=== PATIENT | male | born 2000 | race Caucasian/White ===

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

== ENCOUNTER 2023-01-27 16:52 | Observation (INO) | payer MEDICAID, SELFPAY ==
--- NOTE | ~2023-01-27 | XR_ITS ---
EXAMINATION: PORTABLE CHEST 1 VIEW CLINICAL INFORMATION: Chest pain. COMPARISON: No recent pertinent prior studies are available for comparison. TECHNIQUE: Portable frontal view of the chest was obtained. FINDINGS: The lungs are well expanded. No focal infiltrate, effusion, edema, or pneumothorax. Cardiac and mediastinal silhouettes are within normal limits for technique. No acute bony abnormality seen. XR/XR chest 1V IMPRESSION: No evidence of acute disease.
--- NOTE | ~2023-01-27 | CT_ITS ---
EXAMINATION: CT ANGIOGRAM CHEST WITH AND WITHOUT CONTRAST (CT PULMONARY ANGIOGRAM FOR PE) CLINICAL INFORMATION: Chest pain, elevated D-dimer. COMPARISON: Chest x-ray from earlier the same day. TECHNIQUE: Prior to contrast administration, noncontrast localization images were obtained. Subsequently, multidetector volumetric imaging was performed from the thoracic inlet to below the diaphragms following the administration of 65 mL Omnipaque 350 intravenous contrast. No contrast reaction reported. Sagittal, coronal, and MIP oblique sagittal reformatted images were obtained on the CT workstation, uploaded to PACS, and reviewed. This CT examination was performed using dose optimization techniques as appropriate, variously including the following: *Automated exposure control. *Adjustment of mA and/or kV according to patient size (this includes techniques or standardized protocols for targeted exams where dose is matched to indication/reason for exam; i.e. extremities or head). *Use of iterative reconstruction technique. Total exam dose-length product 310 mGy-cm. FINDINGS: QUALITY OF STUDY/CONTRAST BOLUS: Satisfactory. PULMONARY ARTERIES: No pulmonary emboli. THORACIC AORTA: No aneurysm. LUNG: No focal consolidation, nodules or masses. PLEURA: No pleural effusion or pneumothorax. MEDIASTINUM: Normal heart size. No pericardial effusion. No hilar or mediastinal lymphadenopathy. No evidence of septal bowing or right heart strain. CORONARY ARTERY CALCIFICATION: None visualized on this study. CHEST WALL/AXILLA: No axillary or internal mammary lymphadenopathy. OSSEOUS STRUCTURES: No acute or suspicious osseous abnormality. UPPER ABDOMEN: Unremarkable. No reflux of contrast into the hepatic veins to suggest elevated right heart pressures. CT/CT angio chest PE protocol IMPRESSION: No evidence of pulmonary embolism. VTE: Negative.
--- NOTE | 2023-01-27 16:58 | ECG_ITS ---
Test Reason : CHEST PAIN Blood Pressure : / mmHG Vent. Rate : 081 BPM Atrial Rate : 081 BPM P-R Int : 120 ms QRS Dur : 086 ms QT Int : 350 ms P-R-T Axes : 046 034 025 degrees QTc Int : 406 ms Normal sinus rhythm with sinus arrhythmia Normal ECG No previous ECGs available Referred By: Generic ED Physician Electronically Signed By:SUBHA RODRIGUEZ MD
[2023-01-27 17:26] VITALS: BP 131/78; PULSE 81; RESP 18; TEMP 36.7; O2SAT 98; BMI 33.0
--- NOTE | 2023-01-27 17:30 | ED_ITS ---
HPI - Chest Pain General Chief Complaint: Chest Pain <LOYDA Cleaning - Last Filed: 02/03/23 09:32> Stated Complaint: chest pain left arm pain <LOYDA Cleaning - Last Filed: 02/03/23 09:32> Time Seen by Provider: 01/27/23 18:10 <LOYDA Cleaning - Last Filed: 02/03/23 09:32> Source: patient and family (Mother) <Shanique Chacon MD - Last Filed: 01/27/23 23:25> Mode of arrival: ambulatory <Shanique Chacon MD - Last Filed: 01/27/23 23:25> History of Present Illness HPI narrative: 22-year-old male without significant past medical history, up-to-date on vaccine, states that he is been feeling unwell since with some body aches and then states that yesterday he had significant left-sided chest pain that radiated into his left arm and felt that in his neck. He then states that the pain resolved and was not associated with any dizziness or shortness of breath. And then patient states that he experienced chest pain again today left chest involving the arm and states that he felt something funny in his leg but is completely asymptomatic at the time of evaluation. <Shanique Chacon MD - Last Filed: 01/27/23 23:25> Related Data Home Medications: Previous Rx's Medication Instructions Recorded metoprolol succinate 50 mg 50 mg PO DAILY #30 tabs 01/29/23 tablet,extended release 24 hr (Toprol XL) <LOYDA Cleaning - Last Filed: 02/03/23 09:32> Allergies/Adverse Reactions: Allergies Allergy/AdvReac Type Severity Reaction Status Date / Time No Known Allergies Allergy Verified 01/28/23 01:03 [No Known Allergies*] <LOYDA Cleaning - Last Filed: 02/03/23 09:32> Review of Systems Review of Systems: Pertinent positives and negatives as stated in HPI <Shanique Chacon MD - Last Filed: 01/27/23 23:25> PMFSH Past Medical History Source: nursing notes reviewed <Shanique Chacon MD - Last Filed: 01/27/23 23:25> Medical History: Medical History Mild intermittent asthma <LOYDA Cleaning - Last Filed: 02/03/23 09:32> Family History Family History: Family History Mother No problems noted. Father Rash and nonspecific skin eruption Eczema Paternal Uncle Rash and nonspecific skin eruption <LOYDA Cleaning - Last Filed: 02/03/23 09:32> Social History Social History: Social History Household Members: Family Alcohol intake: never Patient Tobacco Use Status: Never used Tobacco Smoked in Last 30 Days: No Use of substances other than those prescribed or required for medical reasons: No Advance Directives: No Advance Directives Information Provided: No Nutrition Risks: No Nutritional Risk service: No Current occupational status: unemployed <LOYDA Cleaning - Last Filed: 02/03/23 09:32> Physical Exam Vital Signs: Vital Signs: Last Vital Signs Temp 97.6 F 01/29/23 11:33 Pulse 67 01/29/23 11:33 Resp 18 01/29/23 11:33 BP 113/76 01/29/23 11:33 Pulse Ox 96 01/29/23 11:33 O2 Del Method Room Air 01/29/23 11:33 BMI result Body Mass Index 33.0 <LOYDA Cleaning - Last Filed: 02/03/23 09:32> Vital Signs: Last Vital Signs Temp 97.6 F 01/29/23 11:33 Pulse 67 01/29/23 11:33 Resp 18 01/29/23 11:33 BP 113/76 01/29/23 11:33 Pulse Ox 96 01/29/23 11:33 O2 Del Method Room Air 01/29/23 11:33 BMI result Body Mass Index 33.0 VITAL SIGNS: Reviewed. GENERAL: Well developed, well nourished, in no acute distress. HEAD: Normocephalic/atraumatic EYES: PERRLA, EOMI EARS: Ext canals without abnormality, TMs non-bulging and non-erythematous NOSE: Nares patent bilateral OROPHARYNX: no oral lesions noted, posterior pharynx clear and non-erythematous without noted tonsillar enlargement/erythema/exudates NECK: Supple, no adenopathy LUNGS: Normal breath sounds. No adventitious sounds or accessory muscle use. SpO2<98> CARDIOVASCULAR: Regular rate and rhythm without noted murmurs but pronounced P2 ABDOMEN: Soft, non-tender, non-distended with bowel sounds. MUSCULOSKELETAL: No tenderness, deformities, or effusions noted on gross inspection. EXTREMITIES: No cyanosis, clubbing or edema. SKIN: Inspection of the skin reveals vitiligo NEUROLOGIC: Alert and oriented x 4. Strength and sensation to light touch were grossly intact x 4. I completed a bedside echo: Good squeeze Aorta less than 4 cm RV=LV No pericardial effusion <Shanique Chacon MD - Last Filed: 01/27/23 23:25> Course Course Course Narrative: RME: 22 yold male presents to the ED For left sided chest pain since yesterday. Chest pain resolved, but still has tingling in left arm. NO pleurisy, recent travel, surgery, or leg swelling. labs/EKG/chest xray ordered <LOYDA Cleaning - Last Filed: 02/03/23 09:32> Medications Administered Discontinued Medications Generic Name Dose Route Start Last Admin Trade Name Freq PRN Reason Stop Dose Admin Sodium Chloride 1,000 mls @ 999 mls/hr 01/28/23 02:06 01/28/23 04:12 Ns IV 01/28/23 03:06 Infused .Q1H1M ONE Infusion Iohexol 100 ml 01/27/23 20:22 01/27/23 20:22 Iohexol 350 Mg/Ml 100 Ml Infus..Btl IV 01/27/23 20:23 65 ml ONCE ONE Administration Metoprolol Tartrate 25 mg 01/28/23 10:45 01/29/23 09:51 Metoprolol Tartrate 25 Mg Tablet PO 25 mg BID CANDACE Administration Protocol Sodium Chloride 3 ml 01/28/23 08:00 01/29/23 09:52 0.9 % Sodium Chloride Flush 3 Ml Syringe IVFLUSH 3 ml QSHIFT CANDACE Administration <LOYDA Cleaning - Last Filed: 02/03/23 09:32> Medications Administered Discontinued Medications Generic Name Dose Route Start Last Admin Trade Name Freq PRN Reason Stop Dose Admin Sodium Chloride 1,000 mls @ 999 mls/hr 01/28/23 02:06 04/11/23 04:12 Ns IV 01/28/23 03:06 Infused .Q1H1M ONE Infusion Iohexol 100 ml 01/27/23 20:22 01/27/23 20:22 Iohexol 350 Mg/Ml 100 Ml Infus..Btl IV 01/27/23 20:23 65 ml ONCE ONE Administration Metoprolol Tartrate 25 mg 01/28/23 10:45 01/29/23 09:51 Metoprolol Tartrate 25 Mg Tablet PO 25 mg BID CANDACE Administration Protocol Sodium Chloride 3 ml 01/28/23 08:00 01/29/23 09:52 0.9 % Sodium Chloride Flush 3 Ml Syringe IVFLUSH 3 ml QSHIFT CANDACE Administration <Shanique Chacon MD - Last Filed: 01/27/23 23:25> Medical Decision Making Medical Decision Making MDM Narrative: 22-year-old male with history and clinical presentation initially felt to be possible viral in nature but then troponin was elevated to over 2000, EKG without acute findings, d-dimer 892, CRP-1.84,CPK-325, UDS negative, viral testing negative. Patient has remained asymptomatic throughout his observation in the emergency room. 2257: I reached out to Cardiology after 2nd troponin demonstrates a downward trend and repeat EKG again without acute findings. 2322: I discussed case with cardiology who recommends admission for obse rvation, formal echocardiogram in the morning, continue to trend troponins every 6-8 hours. Patient and family member were informed at bedside. <Shanique Chacon MD - Last Filed: 01/27/23 23:25> Differential Diagnosis Please see the discussion above <Shanique Chacon MD - Last Filed: 01/27/23 23:25> Consult Healthcare Provider Please see the discussion above <Shanique Chacon MD - Last Filed: 01/27/23 23:25> Lab Data Please see the discussion above <Shanique Chacon MD - Last Filed: 01/27/23 23:25> Result Diagrams: 01/27/23 19:34 01/27/23 19:34 <LOYDA Cleaning - Last Filed: 02/03/23 09:32> Labs: Lab Results 01/27/23 01/27/23 01/27/23 Range/Units 18:23 18:23 19:34 WBC 6.7 (4.8-10.8) X10*3/uL RBC 5.42 (4.60-5.80) X10*6/uL Hgb 16.3 (14.0-18.0) g/dl Hct 44.9 (42.0-52.0) % MCV 82.8 (80.0-98.0) fL MCH 30.1 (27.0-33.0) pg MCHC 36.3 H (31.0-36.0) g/dl RDW 11.9 (11.0-16.0) % Plt Count 211 (160-400) X10*3/uL MPV 10.3 (9.4-12.4) fL Immature Gran % (Auto) 0.1 (0.0-0.4) % Neut % (Auto) 52.6 (45-73) % Lymph % (Auto) 34.4 (20-40) % Mcnairy % (Auto) 11.2 H (2-11) % Eos % (Auto) 1.3 (0-4) % Baso % (Auto) 0.4 (0-2) % Lymph # (Auto) 2.3 (1.2-4.9) X10*3/uL Mcnairy # (Auto) 0.8 (0.1-1.2) X10*3/uL Eos # (Auto) 0.1 (0.0-0.4) X10*3/uL Baso # (Auto) 0.0 (0.0-0.2) X10*3/uL Abs Immat Gran (auto) 0.01 (0.00-0.03) X10*3/uL Absolute Neuts (auto) 3.5 (2.0-8.3) x10*3/uL Absolute Nucleated RBC 0.000 (0.0-0.012) X10*3/uL Nucleated RBC % (auto) 0.0 (0.0-0.2) /100WBC ESR (0-15) MM/HR PT (10.0-13.1) SEC INR (0.9-1.1) D-Dimer High Sensitivty NG/ML Sodium (135-145) mmol/L Potassium (3.3-5.1) mmol/L Chloride (96-108) mmol/L Carbon Dioxide (22-29) mmol/L Anion Gap (12-20) BUN (9-16) mg/dL Creatinine (0.5-1.4) mg/dL Estim Creat Clear Calc Estimated GFR Random Glucose (60-115) mg/dL Calcium (8.4-10.2) mg/dL Total Bilirubin (0.0-1.0) mg/dL AST (5-37) U/L ALT (0-40) U/L Alkaline Phosphatase (39-117) U/L Total Creatine Kinase (38-174) U/L Troponin I High Sens 2680.6 H* (<3.5-35.0) ng/L C-Reactive Protein (< or = 0.50) mg/dL Total Protein (6.5-8.0) g/dL Albumin (3.5-5.0) g/dL Urine Opiates Screen (Not Detect) Urine Fentanyl Screen (Not Detect) Ur Barbiturates Screen (Not Detect) Ur Phencyclidine Scrn (Not Detect) Ur Amphetamines Screen (Not Detect) U Benzodiazepines Scrn (Not Detect) Urine Cocaine Screen (Not Detect) U Marijuana (THC) Screen (Not Detect) Influenza Type A (PCR) NEGATIVE (Negative) Influenza Type B (PCR) NEGATIVE (Negative) RSV RNA Qual (PCR) NEGATIVE (Negative) SARS-CoV-2 RNA (RT-PCR) NEGATIVE (Negative) S. pyogenes GrpA ELLIOTT (Negative) 01/27/23 01/27/23 01/27/23 Range/Units 19:34 19:34 19:34 WBC (4.8-10.8) X10*3/uL RBC (4.60-5.80) X10*6/uL Hgb (14.0-18.0) g/dl Hct (42.0-52.0) % MCV (80.0-98.0) fL MCH (27.0-33.0) pg MCHC (31.0-36.0) g/dl RDW (11.0-16.0) % Plt Count (160-400) X10*3/uL MPV (9.4-12.4) fL Immature Gran % (Auto) (0.0-0.4) % Neut % (Auto) (45-73) % Lymph % (Auto) (20-40) % Mcnairy % (Auto) (2-11) % Eos % (Auto) (0-4) % Baso % (Auto) (0-2) % Lymph # (Auto) (1.2-4.9) X10*3/uL Mcnairy # (Auto) (0.1-1.2) X10*3/uL Eos # (Auto) (0.0-0.4) X10*3/uL Baso # (Auto) (0.0-0.2) X10*3/uL Abs Immat Gran (auto) (0.00-0.03) X10*3/uL Absolute Neuts (auto) (2.0-8.3) x10*3/uL Absolute Nucleated RBC (0.0-0.012) X10*3/uL Nucleated RBC % (auto) (0.0-0.2) /100WBC ESR 5 (0-15) MM/HR PT 12.8 (10.0-13.1) SEC INR 1.1 (0.9-1.1) D-Dimer High Sensitivty 896 NG/ML Sodium 142 (135-145) mmol/L Potassium 3.7 (3.3-5.1) mmol/L Chloride 104 (96-108) mmol/L Carbon Dioxide 28 (22-29) mmol/L Anion Gap 14 (12-20) BUN 7 L (9-16) mg/dL Creatinine 0.82 (0.5-1.4) mg/dL Estim Creat Clear Calc 153.4 Estimated GFR > 60 Random Glucose 86 (60-115) mg/dL Calcium 9.6 (8.4-10.2) mg/dL Total Bilirubin 0.6 (0.0-1.0) mg/dL AST 36 (5-37) U/L ALT 24 (0-40) U/L Alkaline Phosphatase 56 (39-117) U/L Total Creatine Kinase 325 H (38-174) U/L Troponin I High Sens (<3.5-35.0) ng/L C-Reactive Protein 1.84 H (< or = 0.50) mg/dL Total Protein 7.5 (6.5-8.0) g/dL Albumin 4.7 (3.5-5.0) g/dL Urine Opiates Screen (Not Detect) Urine Fentanyl Screen (Not Detect) Ur Barbiturates Screen (Not Detect) Ur Phencyclidine Scrn (Not Detect) Ur Amphetamines Screen (Not Detect) U Benzodiazepines Scrn (Not Detect) Urine Cocaine Screen (Not Detect) U Marijuana (THC) Screen (Not Detect) Influenza Type A (PCR) (Negative) Influenza Type B (PCR) (Negative) RSV RNA Qual (PCR) (Negative) SARS-CoV-2 RNA (RT-PCR) (Negative) S. pyogenes GrpA ELLIOTT (Negative) 01/27/23 01/27/23 01/27/23 Range/Units 20:30 20:30 22:02 WBC (4.8-10.8) X10*3/uL RBC (4.60-5.80) X10*6/uL Hgb (14.0-18.0) g/dl Hct (42.0-52.0) % MCV (80.0-98.0) fL MCH (27.0-33.0) pg MCHC (31.0-36.0) g/dl RDW (11.0-16.0) % Plt Count (160-400) X10*3/uL MPV (9.4-12.4) fL Immature Gran % (Auto) (0.0-0.4) % Neut % (Auto) (45-73) % Lymph % (Auto) (20-40) % Mcnairy % (Auto) (2-11) % Eos % (Auto) (0-4) % Baso % (Auto) (0-2) % Lymph # (Auto) (1.2-4.9) X10*3/uL Mcnairy # (Auto) (0.1-1.2) X10*3/uL Eos # (Auto) (0.0-0.4) X10*3/uL Baso # (Auto) (0.0-0.2) X10*3/uL Abs Immat Gran (auto) (0.00-0.03) X10*3/uL Absolute Neuts (auto) (2.0-8.3) x10*3/uL Absolute Nucleated RBC (0.0-0.012) X10*3/uL Nucleated RBC % (auto) (0.0-0.2) /100WBC ESR (0-15) MM/HR PT (10.0-13.1) SEC INR (0.9-1.1) D-Dimer High Sensitivty NG/ML Sodium (135-145) mmol/L Potassium (3.3-5.1) mmol/L Chloride (96-108) mmol/L Carbon Dioxide (22-29) mmol/L Anion Gap (12-20) BUN (9-16) mg/dL Creatinine (0.5-1.4) mg/dL Estim Creat Clear Calc Estimated GFR Random Glucose (60-115) mg/dL Calcium (8.4-10.2) mg/dL Total Bilirubin (0.0-1.0) mg/dL AST (5-37) U/L ALT (0-40) U/L Alkaline Phosphatase (39-117) U/L Total Creatine Kinase (38-174) U/L Troponin I High Sens 2048.0 H* (<3.5-35.0) ng/L C-Reactive Protein (< or = 0.50) mg/dL Total Protein (6.5-8.0) g/dL Albumin (3.5-5.0) g/dL Urine Opiates Screen Not Detected (Not Detect) Urine Fentanyl Screen Not Detected (Not Detect) Ur Barbiturates Screen Not Detected (Not Detect) Ur Phencyclidine Scrn Not Detected (Not Detect) Ur Amphetamines Screen Not Detected (Not Detect) U Benzodiazepines Scrn Not Detected (Not Detect) Urine Cocaine Screen Not Detected (Not Detect) U Marijuana (THC) Screen Not Detected (Not Detect) Influenza Type A (PCR) (Negative) Influenza Type B (PCR) (Negative) RSV RNA Qual (PCR) (Negative) SARS-CoV-2 RNA (RT-PCR) (Negative) S. pyogenes GrpA ELLIOTT Negative (Negative) <LOYDA Cleaning - Last Filed: 02/03/23 09:32> Lab Results 01/27/23 01/27/23 01/27/23 Range/Units 18:23 18:23 19:34 WBC 6.7 (4.8-10.8) X10*3/uL RBC 5.42 (4.60-5.80) X10*6/uL Hgb 16.3 (14.0-18.0) g/dl Hct 44.9 (42.0-52.0) % MCV 82.8 (80.0-98.0) fL MCH 30.1 (27.0-33.0) pg MCHC 36.3 H (31.0-36.0) g/dl RDW 11.9 (11.0-16.0) % Plt Count 211 (160-400) X10*3/uL MPV 10.3 (9.4-12.4) fL Immature Gran % (Auto) 0.1 (0.0-0.4) % Neut % (Auto) 52.6 (45-73) % Lymph % (Auto) 34.4 (20-40) % Mcnairy % (Auto) 11.2 H (2-11) % Eos % (Auto) 1.3 (0-4) % Baso % (Auto) 0.4 (0-2) % Lymph # (Auto) 2.3 (1.2-4.9) X10*3/uL Mcnairy # (Auto) 0.8 (0.1-1.2) X10*3/uL Eos # (Auto) 0.1 (0.0-0.4) X10*3/uL Baso # (Auto) 0.0 (0.0-0.2) X10*3/uL Abs Immat Gran (auto) 0.01 (0.00-0.03) X10*3/uL Absolute Neuts (auto) 3.5 (2.0-8.3) x10*3/uL Absolute Nucleated RBC 0.000 (0.0-0.012) X10*3/uL Nucleated RBC % (auto) 0.0 (0.0-0.2) /100WBC ESR (0-15) MM/HR PT (10.0-13.1) SEC INR (0.9-1.1) D-Dimer High Sensitivty NG/ML Sodium (135-145) mmol/L Potassium (3.3-5.1) mmol/L Chloride (96-108) mmol/L Carbon Dioxide (22-29) mmol/L Anion Gap (12-20) BUN (9-16) mg/dL Creatinine (0.5-1.4) mg/dL Estim Creat Clear Calc Estimated GFR Random Glucose (60-115) mg/dL Calcium (8.4-10.2) mg/dL Total Bilirubin (0.0-1.0) mg/dL AST (5-37) U/L ALT (0-40) U/L Alkaline Phosphatase (39-117) U/L Total Creatine Kinase (38-174) U/L Troponin I High Sens 2680.6 H* (<3.5-35.0) ng/L C-Reactive Protein (< or = 0.50) mg/dL Total Protein (6.5-8.0) g/dL Albumin (3.5-5.0) g/dL Urine Opiates Screen (Not Detect) Urine Fentanyl Screen (Not Detect) Ur Barbiturates Screen (Not Detect) Ur Phencyclidine Scrn (Not Detect) Ur Amphetamines Screen (Not Detect) U Benzodiazepines Scrn (Not Detect) Urine Cocaine Screen (Not Detect) U Marijuana (THC) Screen (Not Detect) Influenza Type A (PCR) NEGATIVE (Negative) Influenza Type B (PCR) NEGATIVE (Negative) RSV RNA Qual (PCR) NEGATIVE (Negative) SARS-CoV-2 RNA (RT-PCR) NEGATIVE (Negative) S. pyogenes GrpA ELLIOTT (Negative) 01/27/23 01/27/23 01/27/23 Range/Units 19:34 19:34 19:34 WBC (4.8-10.8) X10*3/uL RBC (4.60-5.80) X10*6/uL Hgb (14.0-18.0) g/dl Hct (42.0-52.0) % MCV (80.0-98.0) fL MCH (27.0-33.0) pg MCHC (31.0-36.0) g/dl RDW (11.0-16.0) % Plt Count (160-400) X10*3/uL MPV (9.4-12.4) fL Immature Gran % (Auto) (0.0-0.4) % Neut % (Auto) (45-73) % Lymph % (Auto) (20-40) % Mcnairy % (Auto) (2-11) % Eos % (Auto) (0-4) % Baso % (Auto) (0-2) % Lymph # (Auto) (1.2-4.9) X10*3/uL Mcnairy # (Auto) (0.1-1.2) X10*3/uL Eos # (Auto) (0.0-0.4) X10*3/uL Baso # (Auto) (0.0-0.2) X10*3/uL Abs Immat Gran (auto) (0.00-0.03) X10*3/uL Absolute Neuts (auto) (2.0-8.3) x10*3/uL Absolute Nucleated RBC (0.0-0.012) X10*3/uL Nucleated RBC % (auto) (0.0-0.2) /100WBC ESR 5 (0-15) MM/HR PT 12.8 (10.0-13.1) SEC INR 1.1 (0.9-1.1) D-Dimer High Sensitivty 896 NG/ML Sodium 142 (135-145) mmol/L Potassium 3.7 (3.3-5.1) mmol/L Chloride 104 (96-108) mmol/L Carbon Dioxide 28 (22-29) mmol/L Anion Gap 14 (12-20) BUN 7 L (9-16) mg/dL Creatinine 0.82 (0.5-1.4) mg/dL Estim Creat Clear Calc 153.4 Estimated GFR > 60 Random Glucose 86 (60-115) mg/dL Calcium 9.6 (8.4-10.2) mg/dL Total Bilirubin 0.6 (0.0-1.0) mg/dL AST 36 (5-37) U/L ALT 24 (0-40) U/L Alkaline Phosphatase 56 (39-117) U/L Total Creatine Kinase 325 H (38-174) U/L Troponin I High Sens (<3.5-35.0) ng/L C-Reactive Protein 1.84 H (< or = 0.50) mg/dL Total Protein 7.5 (6.5-8.0) g/dL Albumin 4.7 (3.5-5.0) g/dL Urine Opiates Screen (Not Detect) Urine Fentanyl Screen (Not Detect) Ur Barbiturates Screen (Not Detect) Ur Phencyclidine Scrn (Not Detect) Ur Amphetamines Screen (Not Detect) U Benzodiazepines Scrn (Not Detect) Urine Cocaine Screen (Not Detect) U Marijuana (THC) Screen (Not Detect) Influenza Type A (PCR) (Negative) Influenza Type B (PCR) (Negative) RSV RNA Qual (PCR) (Negative) SARS-CoV-2 RNA (RT-PCR) (Negative) S. pyogenes GrpA ELLIOTT (Negative) 01/27/23 01/27/23 01/27/23 Range/Units 20:30 20:30 22:02 WBC (4.8-10.8) X10*3/uL RBC (4.60-5.80) X10*6/uL Hgb (14.0-18.0) g/dl Hct (42.0-52.0) % MCV (80.0-98.0) fL MCH (27.0-33.0) pg MCHC (31.0-36.0) g/dl RDW (11.0-16.0) % Plt Count (160-400) X10*3/uL MPV (9.4-12.4) fL Immature Gran % (Auto) (0.0-0.4) % Neut % (Auto) (45-73) % Lymph % (Auto) (20-40) % Mcnairy % (Auto) (2-11) % Eos % (Auto) (0-4) % Baso % (Auto) (0-2) % Lymph # (Auto) (1.2-4.9) X10*3/uL Mcnairy # (Auto) (0.1-1.2) X10*3/uL Eos # (Auto) (0.0-0.4) X10*3/uL Baso # (Auto) (0.0-0.2) X10*3/uL Abs Immat Gran (auto) (0.00-0.03) X10*3/uL Absolute Neuts (auto) (2.0-8.3) x10*3/uL Absolute Nucleated RBC (0.0-0.012) X10*3/uL Nucleated RBC % (auto) (0.0-0.2) /100WBC ESR (0-15) MM/HR PT (10.0-13.1) SEC INR (0.9-1.1) D-Dimer High Sensitivty NG/ML Sodium (135-145) mmol/L Potassium (3.3-5.1) mmol/L Chloride (96-108) mmol/L Carbon Dioxide (22-29) mmol/L Anion Gap (12-20) BUN (9-16) mg/dL Creatinine (0.5-1.4) mg/dL Estim Creat Clear Calc Estimated GFR Random Glucose (60-115) mg/dL Calcium (8.4-10.2) mg/dL Total Bilirubin (0.0-1.0) mg/dL AST (5-37) U/L ALT (0-40) U/L Alkaline Phosphatase (39-117) U/L Total Creatine Kinase (38-174) U/L Troponin I High Sens 2048.0 H* (<3.5-35.0) ng/L C-Reactive Protein (< or = 0.50) mg/dL Total Protein (6.5-8.0) g/dL Albumin (3.5-5.0) g/dL Urine Opiates Screen Not Detected (Not Detect) Urine Fentanyl Screen Not Detected (Not Detect) Ur Barbiturates Screen Not Detected (Not Detect) Ur Phencyclidine Scrn Not Detected (Not Detect) Ur Amphetamines Screen Not Detected (Not Detect) U Benzodiazepines Scrn Not Detected (Not Detect) Urine Cocaine Screen Not Detected (Not Detect) U Marijuana (THC) Screen Not Detected (Not Detect) Influenza Type A (PCR) (Negative) Influenza Type B (PCR) (Negative) RSV RNA Qual (PCR) (Negative) SARS-CoV-2 RNA (RT-PCR) (Negative) S. pyogenes GrpA ELLIOTT Negative (Negative) <Shanique Chacon MD - Last Filed: 01/27/23 23:25> Independent Interpretation I performed an independent interpretation of an: EKG <Shanique Chacon MD - Last Filed: 01/27/23 23:25> Interpretation: 1659: Normal sinus rhythm with sinus arrhythmia, HR -81, no STEMI, NM/QRS/QTC is within normal limit 2152: Normal sinus rhythm, HR-75, no STEMI, NM/QRS/QTC are within normal limits. <Shanique Chacon MD - Last Filed: 01/27/23 23:25> Radiology Impression Radiologist Impression: My interpretation is in agreement with radiology's impression of the imaging studies. <Shanique Chacon MD - Last Filed: 01/27/23 23:25> Discharge Plan Discharge Clinical Impression: Viral illness, Chest pain, Elevated troponin, Myocarditis <LOYDA Cleaning - Last Filed: 02/03/23 09:32> Patient Disposition: Admitted As Inpatient <LOYDA Cleaning - Last Filed: 02/03/23 09:32> Discharge Date/Time: 01/28/23 07:45 <LOYDA Cleaning - Last Filed: 02/03/23 09:32>
[2023-01-27 18:59] LABS: Troponin-I High Sensitivity 2680.6 ng/L (<3.5-35.0)
[2023-01-27 19:12] LABS: Influenza A PCR NEGATIVE (Negative); Influenza B PCR NEGATIVE (Negative); Resp Syncy Virus RNA Qual PCR NEGATIVE (Negative); SARS COV2 PCR INHOUSE NEGATIVE (Negative)
[2023-01-27 19:41] LABS: MANUAL DIFF FLAG NO
[2023-01-27 19:43] LABS: Basophils Percent Auto 0.4 % (0-2); Eosinophils Absolute Auto 0.1 X10*3/uL (0.0-0.4); Eosinophils Percent Auto 1.3 % (0-4); Hematocrit 44.9 % (42.0-52.0); Hemoglobin 16.3 g/dl (14.0-18.0); Imm Gran Abs Auto 0.01 X10*3/uL (0.00-0.03); Imm Gran Pct Auto 0.1 % (0.0-0.4); Lymphocytes Absolute Auto 2.3 X10*3/uL (1.2-4.9); Lymphocytes Percent Auto 34.4 % (20-40); Mean Corpuscular HGB Conc 36.3 g/dl (31.0-36.0); Mean Corpuscular Hemoglobin 30.1 pg (27.0-33.0); Mean Corpuscular Volume 82.8 fL (80.0-98.0); Mean Platelet Volume 10.3 fL (9.4-12.4); Monocytes Absolute Auto 0.8 X10*3/uL (0.1-1.2); Monocytes Percent Auto 11.2 % (2-11); Neutrophils Absolute Auto 3.5 x10*3/uL (2.0-8.3); Neutrophils Percent Auto 52.6 % (45-73); Platelet Count 211 X10*3/uL (160-400); Red Blood Count 5.42 X10*6/uL (4.60-5.80); Red Cell Distribution Width 11.9 % (11.0-16.0); White Blood Count 6.7 X10*3/uL (4.8-10.8)
[2023-01-27 19:47] LABS: INTERNATIONAL NORM RATIO 1.1 (0.9-1.1); Prothrombin Time 12.8 SEC (10.0-13.1)
[2023-01-27 19:49] LABS: D Dimer High Sensitivity 896 NG/ML
[2023-01-27 20:08] LABS: Alanine Aminotransferase 24 U/L (0-40); Albumin Level 4.7 g/dL (3.5-5.0); Alkaline Phosphatase 56 U/L (39-117); Anion Gap 14 (12-20); Aspartate Amino Transferase 36 U/L (5-37); Bilirubin Total 0.6 mg/dL (0.0-1.0); Blood Urea Nitrogen 7 mg/dL (9-16); C Reactive Protein 1.84 mg/dL (< or = 0.50); Calcium 9.6 mg/dL (8.4-10.2); Carbon Dioxide 28 mmol/L (22-29); Chloride 104 mmol/L (96-108); Creatinine Clr Calc Pharmacy 153.4; Estimated Glomerular Filt Rate > 60; Glucose Random 86 mg/dL (60-115); Potassium 3.7 mmol/L (3.3-5.1); Sodium 142 mmol/L (135-145); Total Protein 7.5 g/dL (6.5-8.0)
[2023-01-27 20:19] LABS: Erythrocyte Sedimentation Rate 5 MM/HR (0-15)
[2023-01-27] MEDS: iohexoL 350 MG/ML 100 ML INFUS..BTL IV (20:22)
[2023-01-27 20:32] VITALS: BP 125/76; PULSE 99; RESP 21; O2SAT 98
[2023-01-27 20:49] LABS: IDNOW Serial# 6674DD1D; Strep A Nucleic Acid Negative (Negative)
[2023-01-27 20:50] LABS: Amphetamine Screen Urine Not Detected (Not Detect); Barbiturates, Urine Not Detected (Not Detect); Benzodiazepines Screen Urine Not Detected (Not Detect); Cannabinoid Screen Urine Not Detected (Not Detect); Cocaine Screen Urine Not Detected (Not Detect); Fentanyl, urine Not Detected (Not Detect); Opiate Screen Urine Not Detected (Not Detect); Phencyclidine Screen Urine Not Detected (Not Detect)
--- NOTE | 2023-01-27 21:00 | PC.NURSE ---
Addendum entered by Ketty Estrada 01/28/23 05:30: Pt appears to be sleeping, awakens easily to verbal command, denies any pain, CP, palpitations. HR 65, NSR on bedside monitor, will CTM. Original Note: Pt A&Ox4, denies any chest pain, reports heart pain started at 0400 yesterday , described it as squeezing, radiated down left arm, denies any new symptoms. Pt placed on the bedside monitor, HR 80's, NSR, IV line placed and blood work collected and sent to lab. Mother at bedside providing information about Pt. Pt ambulated to BR independently with steady gait.
--- NOTE | 2023-01-27 21:35 | ECG_ITS ---
Test Reason : REPEAT Blood Pressure : / mmHG Vent. Rate : 075 BPM Atrial Rate : 075 BPM P-R Int : 120 ms QRS Dur : 086 ms QT Int : 352 ms P-R-T Axes : 041 022 018 degrees QTc Int : 393 ms Normal sinus rhythm Normal ECG When compared with ECG of 27-JAN-2023 16:59, No significant change was found Referred By: hSanique Chacon Electronically Signed By:SUBHA RODRIGUEZ MD
[2023-01-27 22:02] VITALS: BP 112/75; PULSE 88; RESP 21; TEMP 36.7; O2SAT 98
[2023-01-28] VITALS (8 sets, daily range): BP systolic 103–121; BP diastolic 69–77; PULSE 60–90; RESP 14–20; TEMP 36.2–36.9; O2SAT 95–98; BMI 33.0
--- NOTE | 2023-01-28 | ECG_ITS ---
Test Reason : left arm and cp ache Blood Pressure : / mmHG Vent. Rate : 092 BPM Atrial Rate : 092 BPM P-R Int : 122 ms QRS Dur : 086 ms QT Int : 340 ms P-R-T Axes : 030 028 022 degrees QTc Int : 420 ms Normal sinus rhythm Normal ECG When compared with ECG of 27-JAN-2023 21:52, No significant change was found Referred By: Aniket Scanlon Electronically Signed By:SUBHA RODRIGUEZ MD
[2023-01-28] MEDS: 0.9 % Sodium Chloride 1,000 ML 999 ML IV (02:28)
--- NOTE | 2023-01-28 02:32 | P.HPHOSP_ITS ---
History of Present Illness Date of Service: 01/28/23 Chief Complaint: Chest pain This is a 22-year-old male with no significant past medical history and not on prescription medications who presents to the emergency department for evaluation of chest discomfort. Patient states he has been feeling unwell for the last 2-3 days. Patient has been having headache, generalized body ache and fatigability. One day prior to presentation, patient started having constant left-sided dull chest discomfort and arm pain which lasted throughout the day. Did not increase with ambulation/exertion and did not relieve with rest. Nonpleuritic in nature and nontender. Patient presented as he again had chest discomfort on the day of presentation. States it is dull and nothing makes it better or worse. No similar complaints in the past. No palpitations, shortness of breath, fever, chills, nausea, vomiting, abdominal pain, changes in urinary or bowel habits. No history of irregular heart rhythms. No history of early HI in parents or siblings. In the emergency department, troponin was found to be elevated and Cardiology was consulted Review of Systems Constitutional: Constitutional: Reports body ache(s), Reports lethargy and Reports malaise Cardiovascular: Cardiovascular: Reports chest pain Respiratory: Respiratory: Reports no additional respiratory complaints Gastrointestinal: Gastrointestinal: Reports no additional gastrointestinal complaints Genitourinary: Genitourinary: Reports no additional male genitourinary complaints Musculoskeletal: Musculoskeletal: Reports no additional musculoskeletal complaints Neurologic: Reports system reviewed and no additional complaints, except as documented Psychiatric: Psychiatric: Reports no additional psychiatric complaints [facility] Medical History Mild intermittent asthma Functional capacity: independent ambulation Family History Mother No problems noted. Father Rash and nonspecific skin eruption Eczema Paternal Uncle Rash and nonspecific skin eruption Social History Household Members: Family Alcohol intake: never Patient Tobacco Use Status: Never used Tobacco Smoked in Last 30 Days: No Use of substances other than those prescribed or required for medical reasons: No Advance Directives: No Advance Directives Information Provided: No Nutrition Risks: No Nutritional Risk Meds Allergies Allergy/AdvReac Type Severity Reaction Status Date / Time No Known Allergies Allergy Verified 01/28/23 01:03 [No Known Allergies*] Active Medications: Current Medications Acetaminophen (Acetaminophen 325 Mg Tablet) 650 mg PO Q6H PRN PRN Reason: Pain, Mild (Pain Scale 1-3) Sodium Chloride (Ns) 1,000 mls @ 999 mls/hr IV .Q1H1M ONE Stop: 01/28/23 03:06 Last Admin: 01/28/23 02:28 Dose: 999 mls/hr Melatonin (Melatonin 3 Mg Tablet) 6 mg PO BEDTIME PRN PRN Reason: Insomnia Ondansetron HCl (Ondansetron Hcl 4 Mg/2 Ml Vial) 4 mg IVPUSH Q8H PRN PRN Reason: Nausea and Vomiting Sodium Chloride (0.9 % Sodium Chloride Flush 3 Ml Syringe) 3 ml IVFLUSH QSHIFT CANDACE Vitamin D (Cholecalciferol (Vitamin D3) 25 Mcg Tablet) 25 mcg PO DAILY CANDACE Physical Exam Vital Signs and Narrative: Vital Signs: Last Vital Signs Temp 98.0 F 01/27/23 22:02 Pulse 81 01/28/23 01:56 Resp 14 01/28/23 01:56 BP 114/77 01/28/23 01:56 Pulse Ox 96 01/28/23 01:56 O2 Del Method Room Air 01/28/23 01:56 BMI result Body Mass Index 33.0 Young male lying in bed in no distress Neck supple, no JVD Regular rate and rhythm, S1-S2 heard Regular breath sounds bilaterally, no wheezing or crackles appreciated Abdomen soft nontender, no guarding, no rigidity Patient is awake, alert and oriented to self, place, time and person ; no focal motor deficit Psych: Normal mood No pedal edema Results Labs 01/27/23 19:34 01/27/23 19:34 Labs: Laboratory Results - last 24 hr 01/27/23 01/27/23 01/27/23 18:23 18:23 19:34 MCV 82.8 MCH 30.1 MCHC 36.3 H RDW 11.9 Plt Count 211 MPV 10.3 Immature Gran % (Auto) 0.1 Neut % (Auto) 52.6 Lymph % (Auto) 34.4 [place] % (Auto) 11.2 H Eos % (Auto) 1.3 Baso % (Auto) 0.4 Lymph # (Auto) 2.3 [place] # (Auto) 0.8 Eos # (Auto) 0.1 Baso # (Auto) 0.0 Abs Immat Gran (auto) 0.01 Absolute Neuts (auto) 3.5 Absolute Nucleated RBC 0.000 Nucleated RBC % (auto) 0.0 ESR PT INR D-Dimer High Sensitivty Anion Gap Estim Creat Clear Calc Estimated GFR Random Glucose Calcium Total Bilirubin AST ALT Alkaline Phosphatase Total Creatine Kinase Troponin I High Sens 2680.6 H* C-Reactive Protein Total Protein Albumin Urine Opiates Screen Urine Fentanyl Screen Ur Barbiturates Screen Ur Phencyclidine Scrn Ur Amphetamines Screen U Benzodiazepines Scrn Urine Cocaine Screen U Marijuana (THC) Screen Influenza Type A (PCR) NEGATIVE Influenza Type B (PCR) NEGATIVE RSV RNA Qual (PCR) NEGATIVE SARS-CoV-2 RNA (RT-PCR) NEGATIVE S. pyogenes GrpA ELLIOTT 01/27/23 01/27/23 01/27/23 19:34 19:34 19:34 MCV MCH MCHC RDW Plt Count MPV Immature Gran % (Auto) Neut % (Auto) Lymph % (Auto) [place] % (Auto) Eos % (Auto) Baso % (Auto) Lymph # (Auto) [place] # (Auto) Eos # (Auto) Baso # (Auto) Abs Immat Gran (auto) Absolute Neuts (auto) Absolute Nucleated RBC Nucleated RBC % (auto) ESR 5 PT 12.8 INR 1.1 D-Dimer High Sensitivty 896 Anion Gap 14 Estim Creat Clear Calc 153.4 Estimated GFR > 60 Random Glucose 86 Calcium 9.6 Total Bilirubin 0.6 AST 36 ALT 24 Alkaline Phosphatase 56 Total Creatine Kinase 325 H Troponin I High Sens C-Reactive Protein 1.84 H Total Protein 7.5 Albumin 4.7 Urine Opiates Screen Urine Fentanyl Screen Ur Barbiturates Screen Ur Phencyclidine Scrn Ur Amphetamines Screen U Benzodiazepines Scrn Urine Cocaine Screen U Marijuana (THC) Screen Influenza Type A (PCR) Influenza Type B (PCR) RSV RNA Qual (PCR) SARS-CoV-2 RNA (RT-PCR) S. pyogenes GrpA ELLIOTT 01/27/23 01/27/23 01/27/23 20:30 20:30 22:02 MCV MCH MCHC RDW Plt Count MPV Immature Gran % (Auto) Neut % (Auto) Lymph % (Auto) [place] % (Auto) Eos % (Auto) Baso % (Auto) Lymph # (Auto) [place] # (Auto) Eos # (Auto) Baso # (Auto) Abs Immat Gran (auto) Absolute Neuts (auto) Absolute Nucleated RBC Nucleated RBC % (auto) ESR PT INR D-Dimer High Sensitivty Anion Gap Estim Creat Clear Calc Estimated GFR Random Glucose Calcium Total Bilirubin AST ALT Alkaline Phosphatase Total Creatine Kinase Troponin I High Sens 2048.0 H* C-Reactive Protein Total Protein Albumin Urine Opiates Screen Not Detected Urine Fentanyl Screen Not Detected Ur Barbiturates Screen Not Detected Ur Phencyclidine Scrn Not Detected Ur Amphetamines Screen Not Detected U Benzodiazepines Scrn Not Detected Urine Cocaine Screen Not Detected U Marijuana (THC) Screen Not Detected Influenza Type A (PCR) Influenza Type B (PCR) RSV RNA Qual (PCR) SARS-CoV-2 RNA (RT-PCR) S. pyogenes GrpA ELLIOTT Negative Imaging Radiologist's Impressions: Impressions Chest X-Ray 01/27/23 17:58 IMPRESSION: No evidence of acute disease. Chest CTA 01/27/23 20:26 IMPRESSION: No evidence of pulmonary embolism. VTE: Negative. Assessment and Plan (1) Chest pain: Status: Acute (2) Elevated troponin: Status: Acute Plan This is a 22-year-old male with no significant past medical history and not on prescription medications who presents to the emergency department for evaluation of chest discomfort. #. Elevated troponin with chest discomfort: Will admit patient with cardiac monitoring for observation. Case was discussed with Cardiology from ER. EKG without ischemic changes. Doubt ACS and hence no heparin drip. ?Myocarditis. Will obtain echocardiogram in a.m. and appreciate cardiology assistance. UDS negative. Repeat troponin in a.m. DVT prophylaxis: None Regular diet Full code Time Spent With Patient Time: Total time managing care of this patient today ____ minutes. Quality Stroke Does the patient have a stroke diagnosis?: No VTE Prior VTE?: No VTE Risk Level:: Medical - low VTE Device Contraindication: Treatment Not Indicated VTE Drug Contraindication: Treatment Not Indicated
[2023-01-28 04:44] LABS: Basophils Percent Auto 0.6 % (0-2); Eosinophils Absolute Auto 0.1 X10*3/uL (0.0-0.4); Eosinophils Percent Auto 1.6 % (0-4); Hematocrit 39.3 % (42.0-52.0); Hemoglobin 14.2 g/dl (14.0-18.0); Imm Gran Abs Auto 0.01 X10*3/uL (0.00-0.03); Imm Gran Pct Auto 0.2 % (0.0-0.4); Lymphocytes Percent Auto 31.1 % (20-40); MANUAL DIFF FLAG NO; Mean Corpuscular HGB Conc 36.1 g/dl (31.0-36.0); Mean Corpuscular Hemoglobin 30.1 pg (27.0-33.0); Mean Corpuscular Volume 83.3 fL (80.0-98.0); Mean Platelet Volume 10.1 fL (9.4-12.4); Monocytes Absolute Auto 0.7 X10*3/uL (0.1-1.2); Monocytes Percent Auto 10.5 % (2-11); Neutrophils Absolute Auto 3.6 x10*3/uL (2.0-8.3); Platelet Count 184 X10*3/uL (160-400); Red Blood Count 4.72 X10*6/uL (4.60-5.80); White Blood Count 6.4 X10*3/uL (4.8-10.8)
[2023-01-28 05:09] LABS: Anion Gap 11 (12-20); Blood Urea Nitrogen 5 mg/dL (9-16); Calcium 8.5 mg/dL (8.4-10.2); Carbon Dioxide 27 mmol/L (22-29); Chloride 108 mmol/L (96-108); Creatinine Clr Calc Pharmacy 167.7; Estimated Glomerular Filt Rate > 60; Glucose Random 92 mg/dL (60-115); Sodium 142 mmol/L (135-145)
--- NOTE | 2023-01-28 07:00 | CA_ITS ---
Transthoracic Echocardiogram Amended Patient (Last, First, Middle): Demian Osorio V Gender: Male Date of : 2000 Age: 22 Procedure Date: 01/28/2023 Procedure Type: Transthoracic Echocardiogram Location: S3E Height: 167.64 cm Weight: 92.99 kg BSA: 2.02 m2 Heart Rate: bpm BP: 103 / 72 mmHg Wood Room Supervisor: Referring MD: Jenn Morataya MD Dater Assembler: Zeyad Dodge MD Symptoms: chest pain Study Quality: Good ECG Rhythm: Sinus Conclusions: - Normal study Findings Left Ventricle Normal left ventricular size, thickness, and systolic function. The visually estimated ejection fraction is between 60-65%. Diastolic function is normal for age. Peak GLS is -18%, within acceptable limits. Right Ventricle Normal right ventricular cavity size and systolic function. Atria Both atria are normal in size. There is no evidence of interatrial shunt. Aortic Valve Normal aortic valve structure and function. There is no aortic valve stenosis. There is no aortic valve regurgitation. Mitral Valve Normal mitral valve structure and function. There is trace mitral valve regurgitation. There is no mitral valve stenosis. Pulmonic Valve The pulmonic valve is likely normal. Tricuspid Valve Normal tricuspid valve structure. There is trace tricuspid valve regurgitation. The right ventricular systolic pressure is normal. The right ventricular systolic pressure is 21 mmHg. Normal right atrial pressure. There is no evidence of pulmonary hypertension. Great Vessels All visible segments of the aorta are normal in size. The pulmonary artery was not well visualized. Venous The inferior vena cava is normal in size and collapses greater than 50% with inspiration. Pericardium/Pleural There is no evidence of pericardial effusion. Prior Study Comparison No prior study available for comparison. Measurements 2D Linear Measurements IVSd: 0.97 0.6-0.9/0.6-1.0 cm LVIDd: 5.02 3.9-5.3/4.2-5.9 cm LVIDd Index: 2.49 2.4-3.2/2.2-3.1 cm/m2 LVIDs: 2.70 2.0-3.6 cm LVPWd: 1.07 0.7-1.1 cm Ao Root: 2.90 2.1-3.5 cm LA Diam: 3.60 2.7-3.8/3.0-4.0 cm LAIDs Index: 1.78 1.5-2.3 cm/m2 LV Mass: 234.25 67-162/88-224 g LV Mass Index: 115.97 43-95/49-115 g/m2 LVOT Diam: 2.30 3.0+(-)1.3 cm 2D Volumes LA Vol: 24.30 Mitral Valve MV Pk E: 0.84 MV PK A: 0.50 MV Decel Time: 133.00 E/A: 1.70 E'Lateral: 15.80 E'Medial: 12.00 E/E' Med: 7.00 E/E' Lat: 5.30 PHT: 39.00 MVA PHT: 5.64 Decel Calvert: 6.36 Aortic Valve AoV Pk Onur: 1.25 AoV Mn Onur: 0.74 AoV VTI: 0.24 AoV Pk Grad: 6.00 Aov Mn Grad: 3.00 EMEROSN Cont.VTI: 2.93 LVOT LVOT Pk Onur: 0.88 LVOT Mn Onur: 0.53 LVOT VTI: 0.17 LVOT Pk Grad: 3.00 LVOT Mn Grad: 1.00 LVOT Diam: 2.30 LVOT Area: 4.15 Diastolic Function MV Pk E: 0.84 MV Pk A: 0.50 E/A: 1.70 E'Medial: 12.00 E/E' Med: 7.00 E' Laterial: 15.80 E/E' Lat: 5.30 Right Ventricle TAPSE (mm): 27.00 TVS' Onur: 15.00 Tricuspid Valve TR Pk Onur: 2.14 TR Pk Grad: 18.00 RA Press: 3.00 RVSP: 21.00 Great Vessels Aorta Ao Root-2D: 2.90 2.0-3.7 cm Pulmonary Valve PV Pk Onur: 1.28 Peak PV Grad: 7.00 Updated in Other Vendor System with Status of Final Zeyad Dodge MD electronically signed on 01/28/2023 1:11:44 PM with status of Final
--- NOTE | 2023-01-28 08:05 | PHA.MEDREC ---
Pharmacy Consult ? Medication Reconciliation Pharmacy has completed the medication reconciliation. Reviewed med rec done by nursing. After speaking to patient, I found that he doesn't take the vitamin D she entered in for home meds.
--- NOTE | 2023-01-28 10:27 | MHC.CM.PN ---
Addendum entered by Dionna De La Cruz RN 01/28/23 10:28: FACE SHEET FAXED TO [employer] MOM AND PATIENT AWARE AND IN AGREEMENT Original Note: PATIENT LIVES WITH MOTHER HE IS INDEPENDENT WITH ALL ADLS NO DME OR VNA NO PCP AND NO INSURANCE PATIENT RECENTLY MOVED TO ID AND HAS NO YET SECURED [employer] INSURANCE. MOM (IN ROOM) WILL TRANSPORT HOME AT TIME OF DC. PLAN IS ECHO AND MONITOR OVERNIGHT WANG 01/28 IN CHART
[2023-01-28 10:32] LABS: Adenovirus PCR Not Detected (Not Detect.); Bordetella parapertussis PCR Not Detected (Not Detect.); Bordetella pertussis PCR Not Detected (Not Detect.); Chlamydia pneumoniae PCR Not Detected (Not Detect.); Coronavirus 229E PCR Not Detected (Not Detect.); Coronavirus HKU1 PCR Not Detected (Not Detect.); Coronavirus NL63 PCR Not Detected (Not Detect.); Coronavirus OC43 PCR Not Detected (Not Detect.); Human metapneumovirus PCR Not Detected (Not Detect.); Influenza A PCR Not Detected (Not Detect.); Influenza B PCR Not Detected (Not Detect.); Mycoplasma pneumoniae PCR Not Detected (Not Detect.); Parainfluenza 1 PCR Not Detected (Not Detect.); Parainfluenza 2 PCR Not Detected (Not Detect.); Parainfluenza 3 PCR Not Detected (Not Detect.); Parainfluenza 4 PCR Not Detected (Not Detect.); RSV PCR Not Detected (Not Detect.); Rhino/Enterovirus PCR Not Detected (Not Detect.); SARS-CoV-2 PCR Not Detected (Not Detect.)
--- NOTE | 2023-01-28 10:32 | MHC.CM.PN ---
PLAN IS ECHO TODAY AND MONITOR OVERNIGHT MOM (IN ROOM) AND PATIENT AWARE MOTHER HAS SCHEDULED DENTAL APPT TODAY AND MAY NOT BE ABLE TO BE REACHED
--- NOTE | 2023-01-28 10:38 | PM.CNCAR ---
History of Present Illness History of Present Illness Date of Service: 01/28/23 Requesting physician: Aniket Scanlon Consult reason: other (Myocarditis) Chief complaint: chest pain Narrative: I was consulted to see Demian in cardiology consultation today for chest pain elevated troponin. He is a pleasant 22-year-old male with no significant past medical history, about few days ago he had abdominal discomfort with diarrhea and low-grade fever and did not feel well and fatigue. Subsequently couple of days later he started having significant chest pain and came to the hospital with more severe chest pain yesterday. EKG was unremarkable. However his troponin was significantly elevated at 26 80 and subsequent troponin 3 hours later was down trending to 2048. He still feels little dull ache. His C-reactive protein was elevated at 1.84. However he was then admitted because of elevated troponin and high suspicion for myocarditis. Clinically appears to have myocarditis. He has not had any overnight ventricular arrhythmias. Does not have any shortness of breath or palpitations. He has never had any prior cardiac issues. Review of Systems Constitutional: Constitutional: Reports fever(s), Reports malaise and Reports weakness Cardiovascular: Cardiovascular: Reports chest pain at rest Respiratory: Respiratory: Reports no additional respiratory complaints Gastrointestinal: Gastrointestinal: Reports abdominal pain and Reports diarrhea Genitourinary: Genitourinary: Reports no additional male genitourinary complaints Neurologic: Reports system reviewed and no additional complaints, except as documented and Reports weakness Psychiatric: Psychiatric: Reports no additional psychiatric complaints Endocrine: Endocrine: Reports no additional endocrine complaints Hematologic/Lymphatic: Hematologic/Lymphatic: Reports no additional hematologic/lymphatic complaints [facility] Past Medical History Medical History Mild intermittent asthma Functional capacity: independent ambulation Family History Family History Mother No problems noted. Father Rash and nonspecific skin eruption Eczema Paternal Uncle Rash and nonspecific skin eruption Social History Social History Household Members: Family Alcohol intake: never Patient Tobacco Use Status: Never used Tobacco service: No Current occupational status: unemployed Meds Allergies Allergy/AdvReac Type Severity Reaction Status Date / Time No Known Allergies Allergy Verified 01/28/23 01:03 [No Known Allergies*] Active Medications: Current Medications Acetaminophen (Acetaminophen 325 Mg Tablet) 650 mg PO Q6H PRN PRN Reason: Pain, Mild (Pain Scale 1-3) Melatonin (Melatonin 3 Mg Tablet) 6 mg PO BEDTIME PRN PRN Reason: Insomnia Ondansetron HCl (Ondansetron Hcl 4 Mg/2 Ml Vial) 4 mg IVPUSH Q8H PRN PRN Reason: Nausea and Vomiting Sodium Chloride (0.9 % Sodium Chloride Flush 3 Ml Syringe) 3 ml IVFLUSH QSHIFT [facility] Last Admin: 01/28/23 10:35 Dose: Not Given Home Medications Medication Instructions Recorded Confirmed Last Taken Type No Known Home Meds 01/28/23 01/28/23 Unknown History Physical Exam Vital Signs: Vital Signs: Last Vital Signs Temp 97.7 F 01/28/23 08:00 Pulse 75 01/28/23 08:00 Resp 15 01/28/23 08:00 BP 117/72 01/28/23 08:00 Pulse Ox 97 01/28/23 08:00 O2 Del Method Room Air 01/28/23 08:00 BMI result Body Mass Index 33.0 Const: General: cooperative, comfortable, no acute distress, alert and awake Nutritional Appearance: overweight Orientation/consciousness: patient oriented x3 Limitations: no limitations HEENT: Head: Yes normocephalic and Yes atraumatic Neck: Neck: Yes trachea midline, Yes supple and Yes no JVD Chest: Chest palpation & inspection: normal inspection of the chest Resp: Effort & Inspection: normal respiratory effort Auscultation: clear to auscultation bilaterally Cardio: Jugular venous distension: no JVD Palpation: normal PMI Rate: regular rate Rhythm: regular rhythm Heart sounds: S1 normal heart sound present, S2 normal heart sound present, no click, no gallops, no murmurs and no rubs GI: Auscultation: normal bowel sounds Skin: Rashes: rashes noted Neuro: General: patient oriented x3 and no focal motor deficits Extrem: General: Yes no clubbing, cyanosis or edema Objective Labs and Meds 01/28/23 04:36 01/28/23 04:36 Lab results: Laboratory Results - last 24 hr 01/27/23 01/27/23 01/27/23 18:23 18:23 19:34 WBC 6.7 RBC 5.42 Hgb 16.3 Hct 44.9 MCV 82.8 MCH 30.1 MCHC 36.3 H RDW 11.9 Plt Count 211 MPV 10.3 Immature Gran % (Auto) 0.1 Neut % (Auto) 52.6 Lymph % (Auto) 34.4 [place] % (Auto) 11.2 H Eos % (Auto) 1.3 Baso % (Auto) 0.4 Lymph # (Auto) 2.3 [place] # (Auto) 0.8 Eos # (Auto) 0.1 Baso # (Auto) 0.0 Abs Immat Gran (auto) 0.01 Absolute Neuts (auto) 3.5 Absolute Nucleated RBC 0.000 Nucleated RBC % (auto) 0.0 ESR PT INR D-Dimer High Sensitivty Sodium Potassium Chloride Carbon Dioxide Anion Gap BUN Creatinine Estim Creat Clear Calc Estimated GFR Random Glucose Calcium Total Bilirubin AST ALT Alkaline Phosphatase Total Creatine Kinase Troponin I High Sens 2680.6 H* C-Reactive Protein Total Protein Albumin Urine Opiates Screen Urine Fentanyl Screen Ur Barbiturates Screen Ur Phencyclidine Scrn Ur Amphetamines Screen U Benzodiazepines Scrn Urine Cocaine Screen U Marijuana (THC) Screen Respiratory Panel [place] Adenovirus (Rapid PCR) B.pert (TEM-PCR) B.parapertussis DNA PCR C. pneumoniae DNA (PCR) Coronavirus OC43 (PCR) Coronavirus HKU1 (PCR) Coronavirus 229E (PCR) Coronavirus NL63 (PCR) Human Metapneumovir PCR Influenza A (RT-PCR) Influenza Type A (PCR) NEGATIVE Influenza B (RT-PCR) Influenza Type B (PCR) NEGATIVE M. pneumoniae (PCR) Parainfluenza 1 (PCR) Parainfluenza 2 (PCR) Parainfluenza 3 (PCR) Parainfluenza 4 (PCR) RSV (PCR) RSV RNA Qual (PCR) NEGATIVE Entero/Rhino (PCR) SARS-CoV-2 RNA (RT-PCR) NEGATIVE S. pyogenes GrpA ELLIOTT 01/27/23 01/27/23 01/27/23 19:34 19:34 19:34 WBC RBC Hgb Hct MCV MCH MCHC RDW Plt Count MPV Immature Gran % (Auto) Neut % (Auto) Lymph % (Auto) [place] % (Auto) Eos % (Auto) Baso % (Auto) Lymph # (Auto) [place] # (Auto) Eos # (Auto) Baso # (Auto) Abs Immat Gran (auto) Absolute Neuts (auto) Absolute Nucleated RBC Nucleated RBC % (auto) ESR 5 PT 12.8 INR 1.1 D-Dimer High Sensitivty 896 Sodium 142 Potassium 3.7 Chloride 104 Carbon Dioxide 28 Anion Gap 14 BUN 7 L Creatinine 0.82 Estim Creat Clear Calc 153.4 Estimated GFR > 60 Random Glucose 86 Calcium 9.6 Total Bilirubin 0.6 AST 36 ALT 24 Alkaline Phosphatase 56 Total Creatine Kinase 325 H Troponin I High Sens C-Reactive Protein 1.84 H Total Protein 7.5 Albumin 4.7 Urine Opiates Screen Urine Fentanyl Screen Ur Barbiturates Screen Ur Phencyclidine Scrn Ur Amphetamines Screen U Benzodiazepines Scrn Urine Cocaine Screen U Marijuana (THC) Screen Respiratory Panel [place] Adenovirus (Rapid PCR) B.pert (TEM-PCR) B.parapertussis DNA PCR C. pneumoniae DNA (PCR) Coronavirus OC43 (PCR) Coronavirus HKU1 (PCR) Coronavirus 229E (PCR) Coronavirus NL63 (PCR) Human Metapneumovir PCR Influenza A (RT-PCR) Influenza Type A (PCR) Influenza B (RT-PCR) Influenza Type B (PCR) M. pneumoniae (PCR) Parainfluenza 1 (PCR) Parainfluenza 2 (PCR) Parainfluenza 3 (PCR) Parainfluenza 4 (PCR) RSV (PCR) RSV RNA Qual (PCR) Entero/Rhino (PCR) SARS-CoV-2 RNA (RT-PCR) S. pyogenes GrpA ELLIOTT 01/27/23 01/27/23 01/27/23 20:30 20:30 22:02 WBC RBC Hgb Hct MCV MCH MCHC RDW Plt Count MPV Immature Gran % (Auto) Neut % (Auto) Lymph % (Auto) [place] % (Auto) Eos % (Auto) Baso % (Auto) Lymph # (Auto) [place] # (Auto) Eos # (Auto) Baso # (Auto) Abs Immat Gran (auto) Absolute Neuts (auto) Absolute Nucleated RBC Nucleated RBC % (auto) ESR PT INR D-Dimer High Sensitivty Sodium Potassium Chloride Carbon Dioxide Anion Gap BUN Creatinine Estim Creat Clear Calc Estimated GFR Random Glucose Calcium Total Bilirubin AST ALT Alkaline Phosphatase Total Creatine Kinase Troponin I High Sens 2048.0 H* C-Reactive Protein Total Protein Albumin Urine Opiates Screen Not Detected Urine Fentanyl Screen Not Detected Ur Barbiturates Screen Not Detected Ur Phencyclidine Scrn Not Detected Ur Amphetamines Screen Not Detected U Benzodiazepines Scrn Not Detected Urine Cocaine Screen Not Detected U Marijuana (THC) Screen Not Detected Respiratory Panel [place] Adenovirus (Rapid PCR) B.pert (TEM-PCR) B.parapertussis DNA PCR C. pneumoniae DNA (PCR) Coronavirus OC43 (PCR) Coronavirus HKU1 (PCR) Coronavirus 229E (PCR) Coronavirus NL63 (PCR) Human Metapneumovir PCR Influenza A (RT-PCR) Influenza Type A (PCR) Influenza B (RT-PCR) Influenza Type B (PCR) M. pneumoniae (PCR) Parainfluenza 1 (PCR) Parainfluenza 2 (PCR) Parainfluenza 3 (PCR) Parainfluenza 4 (PCR) RSV (PCR) RSV RNA Qual (PCR) Entero/Rhino (PCR) SARS-CoV-2 RNA (RT-PCR) S. pyogenes GrpA ELLIOTT Negative 01/28/23 01/28/23 01/28/23 04:36 04:36 08:40 WBC 6.4 RBC 4.72 Hgb 14.2 Hct 39.3 L MCV 83.3 MCH 30.1 MCHC 36.1 H RDW 12.0 Plt Count 184 MPV 10.1 Immature Gran % (Auto) 0.2 Neut % (Auto) 56.0 Lymph % (Auto) 31.1 [place] % (Auto) 10.5 Eos % (Auto) 1.6 Baso % (Auto) 0.6 Lymph # (Auto) 2.0 [place] # (Auto) 0.7 Eos # (Auto) 0.1 Baso # (Auto) 0.0 Abs Immat Gran (auto) 0.01 Absolute Neuts (auto) 3.6 Absolute Nucleated RBC 0.000 Nucleated RBC % (auto) 0.0 ESR PT INR D-Dimer High Sensitivty Sodium 142 Potassium 4.0 Chloride 108 Carbon Dioxide 27 Anion Gap 11 L BUN 5 L Creatinine 0.75 Estim Creat Clear Calc 167.7 Estimated GFR > 60 Random Glucose 92 Calcium 8.5 D Total Bilirubin AST ALT Alkaline Phosphatase Total Creatine Kinase Troponin I High Sens C-Reactive Protein Total Protein Albumin Urine Opiates Screen Urine Fentanyl Screen Ur Barbiturates Screen Ur Phencyclidine Scrn Ur Amphetamines Screen U Benzodiazepines Scrn Urine Cocaine Screen U Marijuana (THC) Screen Respiratory Panel [place] See note Adenovirus (Rapid PCR) Not Detected B.pert (TEM-PCR) Not Detected B.parapertussis DNA PCR Not Detected C. pneumoniae DNA (PCR) Not Detected Coronavirus OC43 (PCR) Not Detected Coronavirus HKU1 (PCR) Not Detected Coronavirus 229E (PCR) Not Detected Coronavirus NL63 (PCR) Not Detected Human Metapneumovir PCR Not Detected Influenza A (RT-PCR) Not Detected Influenza Type A (PCR) Influenza B (RT-PCR) Not Detected Influenza Type B (PCR) M. pneumoniae (PCR) Not Detected Parainfluenza 1 (PCR) Not Detected Parainfluenza 2 (PCR) Not Detected Parainfluenza 3 (PCR) Not Detected Parainfluenza 4 (PCR) Not Detected RSV (PCR) Not Detected RSV RNA Qual (PCR) Entero/Rhino (PCR) Not Detected SARS-CoV-2 RNA (RT-PCR) Not Detected S. pyogenes GrpA ELLIOTT EKG shows normal sinus rhythm with normal EKG Imaging Radiologist's impression: Impressions Chest X-Ray 01/27/23 17:58 IMPRESSION: No evidence of acute disease. Chest CTA 01/27/23 20:26 IMPRESSION: No evidence of pulmonary embolism. VTE: Negative. Assessment and Plan (1) Myocarditis: Status: Acute Patient's clinical scenario highly consistent with myocarditis with chest pain syndrome with elevated troponin which are down trending most likely related to viral illness from GI source. Clinically still having mild discomfort but much improved. Start on metoprolol for protection from ventricular arrhythmia. Will obtain echocardiogram to assess for LV systolic function and see if there are any significant large wall motion abnormality. He has no signs or symptoms of heart failure at this point time. These were discussed with him. Eventually require cardiac MRI. We discussed about pathophysiology of myocarditis and management. Avoid sudden strenuous exertion for the next 6 weeks. Will follow with you Time Spent With Patient Time: Total time managing care of this patient today ____ minutes. Procedures Date of Service Date of Service: 01/28/23
[2023-01-28] MEDS: Metoprolol Tartrate 25 MG TABLET PO ×2 (11:08→20:19)
--- NOTE | 2023-01-28 13:34 | PM.EVENT ---
Event Note Date of Service: 01/28/23 Event Note: Patient admitted this morning, seen and examined by the hospitalist team earlier. Seen and examined again Denies any chest pain shortness of breath or palpitation or fever chills. Physical exam: Unchanged from H&P. Assessment plan: Coordinated in H&P Note. Cardio evaluation noted: Added metoprolol, echo, cardiology follow-up in a.m.. Time Spent With Patient Time: Total time managing care of this patient today ____ minutes.
[2023-01-28] MEDS: 0.9 % Sodium Chloride Flush 3 ML SYRINGE IVFLUSH (15:10)
[2023-01-29] MEDS: 0.9 % Sodium Chloride Flush 3 ML SYRINGE IVFLUSH ×2 (00:48→09:52)
[2023-01-29 04:00] VITALS: BP 102/76; PULSE 65; RESP 18; TEMP 36.6; O2SAT 98
[2023-01-29 06:50] LABS: Troponin-I High Sensitivity 818.9 ng/L (<3.5-35.0)
[2023-01-29 07:31] VITALS: BP 118/77; PULSE 65; RESP 18; TEMP 36.2; O2SAT 96
[2023-01-29] MEDS: Metoprolol Tartrate 25 MG TABLET PO (09:51)
--- NOTE | 2023-01-29 10:34 | P.DS_ITS ---
DS: Providers Provider Date of Service: 01/29/23 Date of admission: 01/28/23 01:55 Date of discharge: 01/29/23 Primary care physician: Hannah Euceda PA-C Consults: 01/28/23 01:58 Consult to Cardiology Routine Consulting Provider: [facility] [place] Cardiovascular Services Reason for consultation: chest pain Has provider been notified: Yes DS: Diagnosis Discharge Diagnosis (1) Myocarditis: Status: Acute DS: Summary Hospital Course Hospital Course: 22-year-old male with no significant past medical history and not on prescription medications who presents to the emergency department for evaluation of chest discomfort.? Patient states he has been feeling unwell for the last 2-3 days.? Patient has been having headache, generalized body ache and fatigability.? One day prior to presentation, patient started having constant left-sided dull chest discomfort and arm pain which lasted throughout the day.? Did not increase with ambulation/exertion and did not relieve with rest.? Non pleuritic in nature and nontender.? Patient presented as he again had chest discomfort on the day of presentation.? States it is dull and nothing makes it better or worse.? No similar complaints in the past.? No palpitations, shortness of breath, fever, chills, nausea, vomiting, abdominal pain, changes in urinary or bowel habits.? No history of irregular heart rhythms.? No history of early MA in parents or siblings. Troponin 2680 on admission Hospital course Patient admitted to telemetry where his rhythm remained sinus without dysrhythmias. Over the course of the next 48 hours enzymes trended downward. 2D echo was done a review by Cardiology. At this point in time cardiology feels this is myocarditis related to a viral illness and patient can be discharged home on Toprol XL 50 mg daily. Cardiology will call to arrange outpatient follow-up. Patient is instructed to avoid physical/strenuous activities for 6 weeks or until that time Cardiology clears him Time Spent with Patient Time attestation: Total time managing care of this patient today ____ minutes. Discharge coordination time: Greater than 30 minutes Quality: Safe Use of Opioids Does Pt have an Active Cancer Diagnosis on the Problem List?: No Quality: Stroke Does the patient have a stroke diagnosis?: No Physical Exam Vital Signs: Vital Signs: Last Vital Signs Temp 97.2 F 01/29/23 07:31 Pulse 65 01/29/23 07:31 Resp 18 01/29/23 07:31 BP 118/77 01/29/23 07:31 Pulse Ox 96 01/29/23 07:31 O2 Del Method Room Air 01/29/23 07:31 BMI result Body Mass Index 33.0 Const: Other: Awake alert oriented x3 no acute distress Resp: Other: Clear to auscultation bilaterally no rales rhonchi or wheezes Cardio: Other: No S4; positive S1-S2; no S3 murmurs rubs or gallops GI: Other: Soft nontender nondistended normoactive bowel sounds Extrem: Other: No edema bilaterally DS: Data Data Completed and Pending Labs on day of discharge: Laboratory Results - last 24 hr 01/29/23 06:03 Troponin I High Sens 818.9 H* D Discharge Plan Discharge Anticipated Discharge Date/Time: 01/29/23 10:31 Patient Disposition: Home, Self-Care Discharge Diagnosis: Myocarditis Referrals: Hannah Euceda PA-C [Primary Care Provider] - 1 Week Discharge Medications: New metoprolol succinate [Toprol XL] 50 mg tablet extended release 24 hr 50 mg PO DAILY Qty: 30 0RF Discharge Orders: Discharge Order (Routine); Ordered 01/29/23 Ordered By: Mario Ramos Diet: Advance to usual diet Activity on Discharge: As tolerated Stand Alone Forms: Patient Portal Discharge page Care Plan Goals: Start Toprol XL 50 mg daily. Cardiology will call you for a follow-up appointment Health Concerns: Avoid strenuous activities for the next 6 weeks or until evaluated by Cardiology Plan of Treatment: Return for worsening chest pain or shortness of breath Assessment: See discharge summary
--- NOTE | 2023-01-29 10:46 | MHC.CM.PN ---
HOME - SELF CARE RN AWARE
--- NOTE | 2023-01-29 10:51 | PM.PNCARD ---
Subjective Subjective Date of Service: 01/29/23 Principal diagnosis: Myocarditis Interval history: Patient denies any chest pain. No overnight arrhythmia. Blood pressure is stable. Review of Systems Constitutional: Reports no additional constitutional complaints Cardiovascular: Reports no additional cardiovascular complaints Respiratory: Reports no additional respiratory complaints Reports system reviewed and no additional complaints, except as documented Physical Exam Vital Signs: Last Vital Signs Temp 97.2 F 01/29/23 07:31 Pulse 65 01/29/23 07:31 Resp 18 01/29/23 07:31 BP 118/77 01/29/23 07:31 Pulse Ox 96 01/29/23 07:31 O2 Del Method Room Air 01/29/23 07:31 BMI result Body Mass Index 33.0 Const General: cooperative, comfortable, no acute distress, alert and awake Nutritional Appearance: overweight Orientation/consciousness: patient oriented x3 Limitations: no limitations Neck Neck: Yes trachea midline, Yes supple and Yes no JVD Chest Chest palpation & inspection: normal inspection of the chest Resp Effort & Inspection: normal respiratory effort Auscultation: clear to auscultation bilaterally Cardio Jugular venous distension: no JVD Palpation: normal PMI Rate: regular rate Rhythm: regular rhythm Heart sounds: S1 normal heart sound present, S2 normal heart sound present, no click, no gallops, no murmurs and no rubs Neuro General: patient oriented x3 and no focal motor deficits Objective Labs and Meds 01/28/23 04:36 01/28/23 04:36 Lab results: Laboratory Results - last 24 hr 01/29/23 06:03 Troponin I High Sens 818.9 H* D Progress Note: A&P Assessment and plan (1) Myocarditis: Status: Acute Assessment and Plan: Myocarditis with normal LV systolic function without any regional large wall motion abnormalities with no symptoms currently. Most likely related to GI related viral illness. At this point time will continue metoprolol at 50 mg daily for 4-6 weeks. Will schedule follow-up outpatient cardiac MRI. Avoid sudden strenuous activity at home. Will follow up with Holter monitor in 3-4 weeks time. Will follow up in the clinic in 6 weeks time after testing. Thank you for allowing me to partake in his care. Patient can be discharged home later today Time Spent With Patient Time: Total time managing care of this patient today ____ minutes. Progress Note: Quality Stroke Does the patient have a stroke diagnosis?: No Procedures Date of Service Date of Service: 01/29/23
[2023-01-29 11:33] VITALS: BP 113/76; PULSE 67; RESP 18; TEMP 36.4; O2SAT 96
== END 2023-01-29 12:16 | disposition home or self-care (01) ==
LOC: HO.ED 23:25 → HO.EDOVER 01-28 02:02 → HO.S3 01-28 07:22
PROVIDERS: Internal Medicine; Physician Assistant; Admitting Provider Student in an Organized Health Care Education/Training Program; Emergency Provider Student in an Organized Health Care Education/Training Program; PCP Physician Assistant; Visit Provider Hospitalist
DX: I51.4 Myocarditis, unspecified (principal); B34.9 Viral infection, unspecified; R07.9 Chest pain, unspecified; R77.8 Other specified abnormalities of plasma proteins; R20.2 Paresthesia of skin; R53.83 Other fatigue; M79.10 Myalgia, unspecified site; Z20.822 Contact with and (suspected) exposure to COVID-19; Z20.828 Contact with and (suspected) exposure to other viral communicable diseases; J45.20 Mild intermittent asthma, uncomplicated; Z79.899 Other long term (current) drug therapy
CPT/HCPCS: 0241U; 36415; 71045; 71275; 80048; 80053; 80307; 82550; 84484; 85025; 85379; 85610; 85652; 86140; 87633; 87651; 93005; 93306; 93356; 96360; 99221; 99285; Q9957; Q9967